=== PATIENT | female | born 1965 | race Caucasian/White ===

== ENCOUNTER 2018-04-30 16:27 | Emergency (ER) | payer MEDICAID ==
--- NOTE | 2018-04-30 16:57 | ED.PDOC ---
History of Present Illness - General Chief Complaint: Back Pain or Injury Stated Complaint: left sided back,abd pain from fall Time Seen by Provider: 04/30/18 16:43 Source: patient Exam Limitations: no limitations - History of Present Illness Initial Comments: Agustina Fierro 53 y/o female stated that she tripped on a tree limb 2 days ago then landed on her left side on a tree stump and since then had been having constant sharp pain on her left lower rib cage radiating to her LUQ.Denies vomitng,SOB,bowel or bladder dysfunction. Timing/Duration: days - x2 Quality/Severity: sharpness Back Pain Location: T-spine Back Pain Radiation: other - lower rib cage,LUQ Method of Injury/Prior Injury: fell Improving Factors: rest Worsening Factors: movement Associated Symptoms: denies symptoms Allergies/Adverse Reactions: Allergies Sulfa Antibiotics Allergy (Verified 04/30/18 16:41) Home Medications: Ambulatory Orders Acetaminophen W/ Codeine [Tylenol W/ CODEINE #3] 1 ea PO TID PRN #10 04/30/18 Ciprofloxacin [Cipro] 500 mg PO BID #14 tab 04/30/18 Review of Systems - Review of Systems Constitutional: States: no symptoms reported EENTM: States: no symptoms reported Respiratory: States: see HPI Cardiology: States: no symptoms reported Gastrointestinal/Abdominal: States: see HPI Musculoskeletal: States: see HPI Skin: States: no symptoms reported Neurological: States: no symptoms reported Hematologic/Lymphatic: States: no symptoms reported Past Medical History (General) - Patient Medical History Hx Stroke: No Hx Congestive Heart Failure: No Hx Diabetes: No Hx Hepatitis C: Yes Hx Other PMH: Yes - history of gallstones Surgical History: other - jaw-orif,biopsy benign breast cyst - Vaccination History Hx Influenza Vaccination: No Hx Pneumococcal Vaccination: No - Social History Hx Tobacco Use: Yes Hx Substance Use: Yes - IV -remote;sober - Female History Patient is a Female of Child Bearing Age (10 -59 yrs old): No Patient : No Family Medical History - Family History Mother Family History: Unknown Living Status: Unknown Hx Family Cancer: Yes - kidney-dad;ovarian -mom Physical Exam - Physical Exam General Appearance: Alert, Comfortable, No apparent distress Eyes, Ears, Nose, Throat Exam: normal ENT inspection Neck Exam: non-tender, full range of motion, normal alignment, normal inspection Cardiovascular/Respiratory: regular rate, rhythm, no M/R/G, normal peripheral pulses, normal breath sounds, no respiratory distress, other - tenderness left lower rib cage Peripheral Pulses: radial,right: 2+, radial,left: 2+ Gastrointestinal/Abdominal: normal bowel sounds, soft, no organomegaly, tenderness - tenderness LUQ no peritoneal signs Back Exam: normal inspection, no CVA tenderness, no vertebral tenderness Extremity Exam: no evidence of injury, normal range of motion, non-tender, no pedal edema Neurologic: no motor/sensory deficits, alert, oriented x 3 Skin Exam: normal color, warm/dry Progress - Progress Progress: 04/30/18 18:08 Last Vital Signs Temp 98.1 F 04/30/18 16:37 Pulse 86 04/30/18 16:37 Resp 20 04/30/18 16:37 BP 119/83 04/30/18 16:37 Pulse Ox 97 04/30/18 16:37 - EKG/XRAY/CT XRAY: chest - no rib fracture noted CT Ordered: Yes - abd/p-mild gallbladder thickening Departure - Departure Clinical Impression: Fall against object Contusion of rib on left side Qualifiers: Encounter type: initial encounter Qualified Code(s): S20.212A - Contusion of left front wall of thorax, initial encounter Contusion of abdominal wall Qualifiers: Encounter type: initial encounter Qualified Code(s): S30.1XXA - Contusion of abdominal wall, initial encounter Cholelithiasis Qualifiers: Cholelithiasis location: gallbladder Cholecystitis presence: with cholecystitis Cholecystitis acuity: chronic Biliary obstruction: without biliary obstruction Qualified Code(s): K80.10 - Calculus of gallbladder with chronic cholecystitis without obstruction Time of Disposition: 18:12 Disposition: Discharge to Home or Self Care Condition: Fair Departure Forms: ED Discharge - Pt. Copy, Patient Portal Self Enrollment Instructions: Contusion (DC), Gallstones (DC) Prescriptions: Acetaminophen W/ Codeine [Tylenol W/ CODEINE #3] 1 ea PO TID PRN #10 PRN Reason: Pain Ciprofloxacin [Cipro] 500 mg PO BID #14 tab Home Medications: Ambulatory Orders Acetaminophen W/ Codeine [Tylenol W/ CODEINE #3] 1 ea PO TID PRN #10 04/30/18 Ciprofloxacin [Cipro] 500 mg PO BID #14 tab 04/30/18 Additional Instructions: Return to ER as needed;follow up with primary Md 04 May 2018 as needed
--- NOTE | 2018-04-30 18:04 | CT ---
EXAM DESCRIPTION: Abdoment/Pelvis w/o Contrast CLINICAL HISTORY: 53 years Female LUQ pain/fell/bruised COMPARISON: None. TECHNIQUE: Contiguous axial images obtained through the abdomen and pelvis without IV contrast. Reformatted images obtained. This exam was performed according to our department optimization program which includes automated exposure control, adjustment of the mA and/or kv according to patient size and/or use of iterative reconstruction technique. FINDINGS: The lung bases are clear. The liver appears unremarkable. The spleen and pancreas appear unremarkable. No adrenal masses. Nonobstructing renal calculi without hydronephrosis. The gallbladder is present with gallstones. Large gallstone in the neck. Question mild wall thickening and inflammation along the distal gallbladder. Acute cholecystitis is not excluded. No aneurysmal dilatation of the aorta. No bowel obstruction. No free pelvic fluid. There is superior and central compression at L2 which could reflect acute or subacute compression. IMPRESSION: Bilateral renal calculi without evidence of hydronephrosis Cholelithiasis with some wall thickening and stranding around the gallbladder. Cholecystitis is not excluded Minimal superior and central compression at L2 without significant loss of height. Findings may reflect acute or subacute fracture Electronically signed by: Cassia Soto MD 04/30/2018 6:03 PM CDT
--- NOTE | 2018-04-30 18:04 | RAD ---
EXAM DESCRIPTION: Chest,1 View CLINICAL HISTORY: 53 years Female pain COMPARISON: None. FINDINGS: The cardiomediastinal silhouette appears unremarkable. No consolidating infiltrates or pleural effusions. No pneumothorax. IMPRESSION: No acute abnormality is identified. Electronically signed by: Cassia Soto MD 04/30/2018 6:03 PM CDT
--- NOTE | 2018-04-30 18:05 | RAD ---
PROCEDURE: XR RIBS 2 VIEWS UNILATERAL CLINICAL HISTORY: 53 years Female pain COMPARISON: None. TECHNIQUE: Left ribs three views FINDINGS: No fractures or dislocations are identified. No osseous destructive lesions. Degenerative changes are present in the thoracic and the lumbar spine. No pneumothorax is noted. No displaced rib fracture is identified. IMPRESSION: No rib fracture identified Electronically signed by: Cassia Soto MD 04/30/2018 6:04 PM CDT
[2018-04-30] MEDS ORDERED: traMADol HCL 50 MG (ER DISP) # 6 TABS PO ONE (18:13)
[2018-04-30] MEDS ORDERED: CIPROFLOXACIN 500 MG TAB PO ONE (18:16)
[2018-04-30] MEDS ORDERED: traMADol HCL 50 MG (ER DISP) # 6 TABS ONE (18:17)
[2018-04-30 18:23] VITALS: O2SAT 98
[2018-04-30] MEDS: ACETAMINOPHEN W/COD #3 TAB (ER Disp) PO ONE ×3 (18:27→18:48)
[2018-04-30 18:55] VITALS: BP 126/84; TEMP 98.5
== END 2018-04-30 18:57 | disposition home or self-care (01) ==
LOC: ER 16:27
DX: S20.212A Contusion of left front wall of thorax, initial encounter (principal); S30.1XXA Contusion of abdominal wall, initial encounter; K80.10 Calculus of gallbladder with chronic cholecystitis without obstruction; Z86.19 Personal history of other infectious and parasitic diseases; Z87.891 Personal history of nicotine dependence; Z88.2 Allergy status to sulfonamides; W01.198A Fall on same level from slipping, tripping and stumbling with subsequent striking against other object, initial encounter; Y92.9 Unspecified place or not applicable